=== PATIENT | male | born 1960 ===

== ENCOUNTER 2018-05-15 10:37 | Emergency (ER) | payer OTHER ==
[2018-05-15] MEDS ORDERED: Hydromorphone 1 mg/ml Ampule IV ONE (11:06)
[2018-05-15] MEDS ORDERED: TORAdol 30 mg Injection IM ONE (11:06)
[2018-05-15] MEDS ORDERED: Decadron 4 MG INJ IV ONE (11:06)
[2018-05-15] MEDS ORDERED: Norflex 60 MG/2 ML IM ONE (11:06)
[2018-05-15] MEDS ORDERED: Sodium Chloride 0.9% 1000 ML 1,000 ML IV SCH (11:15)
[2018-05-15] MEDS ORDERED: TORAdol 30 mg Injection ONE (11:20)
[2018-05-15] MEDS ORDERED: Decadron 4 MG INJ ONE (11:20)
[2018-05-15] MEDS ORDERED: Sodium Chloride 0.9% 1000 ML 1,000 ML ONE (11:21)
[2018-05-15] MEDS ORDERED: Norflex 60 MG/2 ML ONE (11:21)
[2018-05-15] MEDS ORDERED: Hydromorphone 1 mg/ml Ampule ONE (11:21)
[2018-05-15] MEDS ORDERED: TORAdol 30 mg Injection IV ONE (11:56)
--- NOTE | 2018-05-15 12:19 | ERPHSYRPT ---
- History of Present Illness Time Seen by Provider: 05/15/18 10:47 Source: patient, family Exam Limitations: no limitations Patient Subjective Stated Complaint: pt here for lower back pain for 5 days now , numbness to both legs off and on, pain shoots down legs Triage Nursing Assessment: pt alert, walked in slow,guarding back, no bruising or swelling Physician History: patient developed lower mid line back pain 4-5 days ago; saw local chiropractor and improved; saw them again and pain got worse yesterday; intermitant pain radiating down both legs to knees; no weakness; no change void or BMs; no incontinence; occassional numbness left thigh- none currently; no recent falls or taums; long hx of intermitent lower back pain; Timing/Duration: today (worse), day(s) (4-5 onset), constant, intermittent ( exacerbation), gradual onset, worse Method of Injury: unknown Quality: radiating, sharp, aching Back Pain Location: lumbar spine (mid) Back Pain Radiation: upper legs (bilateral) Severity of Pain-Max: severe Severity of Pain-Current: severe Modifying Factors: Improves With: movement Associated Symptoms: constipation, numbness in legs/feet (occassionally not now) , lower back pain, muscle spasms, No fever, No urinary incontinence, No loss of bowel control, No nausea, No vomiting, No problems urinating, No weakness, No sensory/motor loss, No tingling in legs/feet Previous symptoms: same symptoms as today, recently seen, recently treated Allergies/Adverse Reactions: Penicillins Allergy (Verified 05/15/18 10:54) Hx Influenza Vaccination/Date Given: No Hx Pneumococcal Vaccination/Date Given: No Immunizations Up to Date: Yes - Review of Systems Constitutional: No Symptoms Eyes: No Symptoms Ears, Nose, & Throat: No Symptoms Respiratory: No Cough, No Dyspnea, No Wheezing Cardiac: No Chest Pain, No Palpitations, No Syncope Abdominal/Gastrointestinal: Constipation, No Abdominal Pain, No Nausea, No Vomiting, No Diarrhea Genitourinary Symptoms: No Dysuria, No Hematuria, No Incontinence, No Urinary Retention, No Flank Pain Skin: No Symptoms Neurological: No Focal Weakness, No Gait Changes, No Headache, No Paralysis, No Parasthesia, No Seizure, No Sensory Changes Psychological: No Symptoms Endocrine: No Symptoms Hematologic/Lymphatic: No Symptoms Immunological/Allergic: No Symptoms - Past Medical History Pertinent Past Medical History: No - Past Surgical History Past Surgical History: Yes Gastrointestinal: Cholecystectomy - Social History Smoking Status: Never smoker Exposure to second hand smoke: No Alcohol Use: Socially Drug Use: none Patient Lives Alone: No Significant Family History: no pertinent family hx - Female History Hx Now: No - Nursing Vital Signs Nursing Vital Signs: Initial Vital Signs Temperature 97.3 F 05/15/18 10:49 Pulse Rate 73 05/15/18 10:49 Respiratory Rate 18 05/15/18 10:49 Blood Pressure 158/102 05/15/18 10:49 O2 Sat by Pulse Oximetry 99 05/15/18 10:49 Pain Scale Pain Intensity 8 - Physical Exam General Appearance: severe distress (lower back pain), alert, thin Eye Exam: PERRL/EOMI Ears, Nose, Throat Exam: normal ENT inspection, TMs normal, pharynx normal, moist mucous membranes Neck Exam: normal inspection, non-tender, supple, full range of motion, No meningismus, No JVD Respiratory Exam: normal breath sounds, lungs clear, airway intact, No chest tenderness, No respiratory distress, No rhonchi, No wheezing Cardiovascular Exam: regular rate/rhythm, normal heart sounds, normal peripheral pulses, capillary refill <2 sec, No murmur, No edema Gastrointestinal Exam: soft, normal bowel sounds, No tenderness, No guarding, No rebound, No organomegaly Male Genetalia Exam: normal genitalia Rectal Exam: deferred Back Exam: normal inspection, decreased range of motion, No normal range of motion (decreased due to pain lower back), No vertebral tenderness, No rash, No point tenderness Extremity Exam: normal inspection, normal range of motion, other (good straight leg raising bilateral- good reflexes bilateral), No parasthesia, No paralysis, No christiano's sign, No pedal edema Peripheral Pulses: carotid (R): 4+, carotid (L): 4+, femoral (R): 4+, femoral (L ): 4+, dorsalis-pedis (R): 3+, dorsalis-pedis (L): 3+ Neurologic Exam: alert, oriented x 3, cooperative, 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, normal mood/affect, nml cerebellar function, nml station & gait, sensation nml Skin Exam: normal color, warm, dry, No rash SpO2 Interpretation: normal SpO2: 99 O2 Delivery: Room Air - Course Nursing assessment & vital signs reviewed: Yes - CT Exams Lumbar Spine CT Interpretation: Tele-radiologist Report, DJD, Other (stenosis of LS spine; degen disc disease; post bulge L5-S1 disc) Ordered Tests: Active Orders 24 hr Category Date Time Status IV Insertion STAT Care 05/15/18 11:06 Active LUMBAR SPINE W/O [CT] Stat Exams 05/15/18 11:07 Taken Medication Summary Generic Name Dose Route Start Last Admin Trade Name Freq PRN Reason Stop Dose Admin Sodium Chloride 1,000 mls @ 50 mls/hr 05/15/18 11:15 05/15/18 11:47 Sodium Chloride 0.9% 1000 Ml IV 06/14/18 11:14 50 mls/hr .Q20H KAUR Administration Discontinued Medications Generic Name Dose Route Start Last Admin Trade Name Freq PRN Reason Stop Dose Admin Dexamethasone Sodium Phosphate 4 mg 05/15/18 11:06 05/15/18 11:47 Decadron 4 Mg Inj IV 05/15/18 11:07 4 mg STAT ONE Administration Dexamethasone Sodium Phosphate Confirm 05/15/18 11:20 Decadron 4 Mg Inj Administered 05/15/18 11:21 Dose 4 mg .ROUTE .STK-MED ONE Hydromorphone HCl 1 mg 05/15/18 11:06 05/15/18 11:48 Hydromorphone 1 Mg/Ml Ampule IV 05/15/18 11:07 1 mg STAT ONE Administration Hydromorphone HCl Confirm 05/15/18 11:21 Hydromorphone 1 Mg/Ml Ampule Administered 05/15/18 11:22 Dose 1 mg .ROUTE .STK-MED ONE Ketorolac Tromethamine 30 mg 05/15/18 11:06 05/15/18 12:02 Toradol 30 Mg Injection IM 05/15/18 11:07 Not Given STAT ONE Ketorolac Tromethamine Confirm 05/15/18 11:20 Toradol 30 Mg Injection Administered 05/15/18 11:21 Dose 30 mg .ROUTE .STK-MED ONE Ketorolac Tromethamine 30 mg 05/15/18 11:56 05/15/18 12:00 Toradol 30 Mg Injection IV 05/15/18 11:57 30 mg STAT ONE Administration Orphenadrine Citrate 60 mg 05/15/18 11:06 05/15/18 11:48 Norflex 60 Mg/2 Ml IM 05/15/18 11:07 60 mg STAT ONE Administration Orphenadrine Citrate Confirm 05/15/18 11:21 Norflex 60 Mg/2 Ml Administered 05/15/18 11:22 Dose 60 mg .ROUTE .STK-MED ONE - Progress Progress: improved ([facility]), re-examined (after cT and meds) Progress Note: 05/15/18 12:22 at bedside; reviewed findings of CT; meds given will monitor and recheck 05/15/18 12:59 RECHECK; AT BEDSIDE; SIGNIFICANT PAIN RELEIF AT REST; instructions and results given; Counseled pt/family regarding: diagnosis, need for follow-up, rad results - Departure Time of Disposition: 12:59 Departure Disposition: Home Clinical Impression: acute exacererbation lower back pain, Sciatic leg pain Condition: Stable Critical Care Time: No Referrals: LORENA LOPEZ JR [Primary Care Provider] - Additional Instructions: rest; no work 72 hours - call lmd Thursday for recheck and referrral if needed Back pain instructions. Rest, ice x 24-48 hours, then warm compresses; no heavy lifting (>20#'s) x 3-5 days; call [facility] or [facility] doctor in am for follow up appointment and or referral as needed. Return if problems. Take meds as prescribed. Follow-up with family doctor as directed. Call for appointment. Return if any problems. If you smoke please stop. Call or follow up with your family doctor for assistance if you need it to stop. Please wear your seatbelt when driving. Have a nice day. Thank you for allowing us to participate in your care today. :o) Dr Wilmer Rodriguez Prescriptions: Naproxen Sodium [Anaprox Ds] 550 mg PO Q8H PRN PRN #20 tablet PRN Reason: Pain Chlorzoxazone [Parafon Forte Dsc] 500 mg PO QID #20 tablet
[2018-05-15] MEDS ORDERED: NORCO 5/325 MG PO ONE (13:03)
[2018-05-15] MEDS ORDERED: NORCO 5/325 MG ONE (13:15)
[2018-05-15 13:17] VITALS: BP 141/87; PULSE 56; O2SAT 97
--- NOTE | 2018-05-15 20:16 | XRAY ---
Indication: Extreme back pain with radiculopathy. Multiple contiguous axial images obtained through the lumbar spine. Sagittal and coronal reformatted images obtained. Comparison: None Axial images demonstrates mild annular disc osteophyte complex at the T12-L3 levels slightly effacing the thecal sac and producing bilateral foraminal narrowing. Mild/moderate annular disc osteophyte seen at the L3-S1 levels effacing the thecal sac and producing bilateral foraminal stenosis greatest at the L5-S1 level. Suspect L3-L4 canal stenosis. Mild multilevel bilateral degenerative facet hypertrophy. Sagittal and coronal reformatted images demonstrates normal lumbar alignment with multilevel disc space narrowing. No acute compression fracture or subluxation. T12/L1/L5/S1 vertebral bodies demonstrates round hypodense lesions, some appearing striated favoring hemangiomas. The largest is T12 segment. Visualized noncontrasted soft tissues unremarkable. Impression: 1. Multilevel degenerative disc disease. Outpatient MRI may yield further information. 2. Incidental T12/L1/L5/S1 vertebral body round hypodense lesions, possible hemangiomas also better evaluated with MRI. Comment: Preliminary interpretation was made by [facility] who does not report incidental vertebral body hypodense lesions. CTDI 82.19
== END 2018-05-15 13:35 | disposition home or self-care (01) ==
LOC: ED 10:37
DX: M54.5 Low back pain (principal); M54.30 Sciatica, unspecified side; M79.606 Pain in leg, unspecified
CPT/HCPCS: 36000; 72131; 96360; 96361; 96372; 96374; 96375; 99284; J1100; J1170; J1885; J2360; A9270-GY